=== PATIENT | male | born 1955 | race Caucasian/White ===

== ENCOUNTER 2021-02-24 11:36 | Inpatient (IN) | payer MEDICARE, OTHER, SELFPAY ==
[2021-02-24] VITALS (24 sets, daily range): BP systolic 116–144; BP diastolic 63–85; PULSE 61–115; RESP 12–20; TEMP 36.2–36.6; O2SAT 8–98; BMI 35.2
--- NOTE | ~2021-02-24 | US_ITS ---
EXAMINATION: US abdomen limited DATE: 02/24/2021 15:05 INDICATION: Abdominal pain TECHNIQUE: Multiple grayscale and Doppler ultrasound images of the abdomen were obtained. COMPARISON: None FINDINGS: The visualized portion of the pancreatic body is normal in appearance. The pancreatic head and tail are obscured. Liver has normal contour, with a smooth surface. There is increased parenchymal echogen icity and coarsened echotexture consistent with diffuse hepatic steatosis. No liver lesion identified however sensitivity is significantly limited by the poor acoustic penetration resulting from the hep atic steatosis. No intrahepatic biliary duct dilation suspected. Portal venous flow was seen in the hepatopetal, normal direction and has normal Doppler waveform. The gallbladder is normal in appearanc e. There is no cholelithiasis. The common bile duct measures 4 mm, which is normal. Sonographic Murp hy sign was reported as negative by the book editor.Right kidney measures 9.1 x 4.4 x 5.3 cm with nor mal echogenicity and no hydronephrosis. Visualized portion of the proximal inferior vena cava is norm al. IMPRESSION: 1. Diffuse hepatic steatosis. Reviewed, dictated and finalized at location A.
--- NOTE | ~2021-02-24 | CT_ITS ---
EXAMINATION: CT abdomen pelvis w con DATE: 02/24/2021 14:14 INDICATION: Abdominal pain. TECHNIQUE: Computed tomography (CT) of the abdomen and pelvis was performed with 100 mL Omnipaque 350 intravenous contrast. Automated exposure control and iterative reconstruction technique were employe d. The dose-length product was 1010.88 mGy-cm. COMPARISON: CT abdomen and pelvis 07/07/2012 FINDINGS: The visualized portions of the lung bases demonstrate calcified bilateral pulmonary nodules and calcified right hilar and mediastinal lymph nodes, consistent with old granulomatous disease. No pleural effusion. The heart size is normal. No pericardial effusion. There is diffuse hepatic steato sis. Calcifications in the spleen are consistent with old granulomatous disease. There is fat strandi ng around the head of the pancreas, consistent with pancreatitis. The gallbladder and spleen are norm al. There is cortical thinning of the kidneys. The prostate is mildly enlarged. There is diverticulos is of the colon without evidence of diverticulitis. The appendix is normal. There are no dilated loop s of bowel. There are no pathologically enlarged lymph nodes. There is no free intraperitoneal fluid. There is moderate lumbar spondylosis. IMPRESSION: 1. Acute interstitial pancreatitis. Reviewed, dictated and finalized at location B.
[2021-02-24 12:03] LABS: Hematocrit 47.6 % (42.0-52.0); Hemoglobin 16.4 g/dL (14.0-18.0); Mean Corpuscular HGB Conc 34.5 g/dl (32-36); Mean Corpuscular Hemoglobin 29.6 pg (26-34); Mean Corpuscular Volume 85.9 fl (80-100); Mean Platelet Volume 11.5 fl (7.4-10.4); Platelet Count Result 258 k/mm3 (150-375); Red Blood Count 5.54 M/mm3 (4.6-6.20); Red Cell Distribution Width 12.9 % (11.5-14.5)
[2021-02-24 12:14] LABS: Alanine Aminotransferase 24 U/L (4-50); Albumin Level 4.5 g/dL (3.5-5.1); Alkaline Phosphatase 74 U/L (38-126); Anion Gap 6 mmol/L (8-16); Aspartate Amino Transferase 28 U/L (17-59); Bilirubin,Total 1.1 mg/dL (0.2-1.3); Blood Urea Nitrogen 16 mg/dL (9-20); Calcium 10.7 mg/dL (8.4-10.2); Carbon Dioxide 37 mmol/L (22-30); Chloride 95 mmol/L (98-107); Estimated CRCL calculation 56 ml/min; Estimated Glomerular Filt Rate > 60; Glucose 174 mg/dL (75-110); Lipase 190 U/L (23-300); Potassium 3.2 mmol/L (3.4-5.0); Sodium 138 mmol/L (137-145)
[2021-02-24 12:20] LABS: Platelet Estimate Adequate (Adequate)
[2021-02-24 12:27] LABS: Add Urine Microscopic? YES; Appearance Urine Cloudy (Clear); Bilirubin Urine Negative (Negative); Blood Urine Negative (Negative); Color Urine Amber (Yellow); Glucose Urine UA Negative (Negative); Ketones Urine Negative (Negative); Leukocyte Esterase Ur Negative LEU/UL (Negative); Mucus Urine Rare /lpf; Nitrate Urine Negative (Negative); Protein Urine 1+ mg/dL (Negative); RBC Urine 0-2 /hpf (0-2); Specific Grav Ur 1.021 (1.001-1.035); Urobilinogen Urine Negative mg/dL (<2.0); WBC Urine 0-3 /hpf
--- NOTE | 2021-02-24 13:41 | ED.GENADULT ---
HPI - General Adult General Chief complaint: Abdominal Pain Stated complaint: abd pain Time Seen by Provider: 02/24/21 13:31 Source: patient History of Present Illness HPI narrative: Patient is a 65 y/o male complaining of epigastric abdominal pain starting 4-5 days ago. He describes his pain as dull and rates it as 5/10. He states that eating makes his pain worse. There is no pain radiation. He has some nausea, but no vomiting or diarrhea. Related Data Home Medications Medication Instructions Recorded Confirmed cetirizine 10 mg capsule 10 mg PO PRN cap 06/17/20 10/16/20 hydrochlorothiazide 25 mg tablet 25 mg PO DAILY 06/17/20 10/16/20 metoprolol tartrate 25 mg tablet 25 mg PO DAILY 06/17/20 10/16/20 alcohol swabs 1 pad TOPICAL DAILY each 10/16/20 10/16/20 Allergies Allergy/AdvReac Type Severity Reaction Status Date / Time codeine Allergy Mild ITCHEY Verified 02/24/21 14:26 FLUSH, N/V tramadol Allergy Unknown Verified 02/24/21 15:46 Review of Systems Constitutional: Constitutional: Denies chills, Denies fever(s), Denies headache(s) and Denies weakness Eyes: Eyes: Denies blurry vision ENT: Denies headache(s) and Denies neck pain Cardiovascular: Cardiovascular: Denies chest pain and Denies dyspnea Respiratory: Respiratory: Denies cough and Denies dyspnea Gastrointestinal: Gastrointestinal: Reports abdominal pain, Denies diarrhea, Reports nausea and Denies vomiting Genitourinary: Genitourinary: Denies hematuria and Denies dysuria Musculoskeletal: Musculoskeletal: Denies back pain and Denies neck pain Neurologic: Denies headache(s) and Denies weakness PMFSH Past Medical History Medical History Hypertension Type 2 diabetes mellitus with hyperglycemia Family History Family History Mother Hypertension Father Family history of chronic obstructive pulmonary disease Sibling Family history of chronic obstructive pulmonary disease Other Diabetes mellitus Family history of cardiovascular disease Family history of elevated blood lipids Family history of glaucoma Family history of hearing loss Family history of mental disorder Family history of obesity Family history of osteoporosis Social History Social History Smoking status: Never smoker Alcohol intake: never Gender identity (if verbalized by the patient): Male Exam Const: General: no acute distress and well developed Orientation/consciousness: oriented to person, oriented to place, oriented to time and patient oriented x3 HENMT: Head: normocephalic Ears: external ears normal General nose exam: Normal external nose present Eyes: General: appearance normal, both eyes and all related structures Conjunctivae: conjunctivae normal Neck: Neck: normal visual inspection and full ROM Chest: Chest palpation & inspection: normal inspection of the chest and no tenderness Resp: Effort & Inspection: normal respiratory effort Auscultation: clear to auscultation bilaterally Cardio: Rate: regular rate Rhythm: regular rhythm GI: GI Palp: Yes abdominal tenderness (right upper quadrant and epigastric) and Yes Soft to palpation Skin: General skin exam: normal color and turgor normal Neuro: General: oriented to person, oriented to place, oriented to time and patient oriented x3 Cognition (Neuro): normal cognition Extrem: General: normal to inspection, full ROM and no pedal edema Psych: Appearance: grossly normal Mental Status: mental status grossly normal Affect: normal affect Course Consultations Consultation #1: Discussed with LUCIA Hernadez, who agrees to admit. Date: 02/24/21 Time: 15:38 Vital Signs Vital signs: Vital Signs Temperature 36.6 C 02/24/21 11:50 Pulse Rate 64 02/24/21 11:50 Respiratory Rate 20 02/24/21 11:50 Blood Pressure 134/80 02/24/21 11:50
[2021-02-24] MEDS: POTASSIUM CHLORIDE 20 MEQ TABLET 40 MEQ PO (14:29)
[2021-02-24] MEDS: METOCLOPRAMIDE HCL INJ 10 MG/2 ML VIAL IV PUSH (14:29)
[2021-02-24] MEDS: SODIUM CHLORIDE 0.9% IV 1,000 ML 999 ML IV CONT (14:31)
[2021-02-24] MEDS: KETOROLAC 30 MG/ML VIAL (*BKC) IV PUSH (14:31)
--- NOTE | 2021-02-24 17:20 | PC.NURSE ---
This patient, Rajan Cassidy Jr., was admitted to 3 Med Surg Room 312-01. Patient/family oriented to hospital policies and general routines including ID bracelet, bed and alarms, visiting hours, pain management, procedures, bathroom and other care routines, personal items, smoking policy, room service/diet, and visiting hours.Report received from Ayan SHERWOOD. Information on how to activate the Rapid Response Team has been discussed. Patient/Family are encouraged to report perceived risks to care and to ask questions if they do not understand what they are told or what they should do.
[2021-02-24] MEDS: SODIUM CHLORIDE 0.9% IV 1,000 ML 125 ML IV CONT (18:23)
[2021-02-24 22:39] LABS: Glucose Point of Care 106 (65-105)
--- NOTE | 2021-02-25 00:07 | PM.IMHP ---
H&P: HPI History of Present Illness Date/Time: 02/24/21 9505 this is a 65-year-old male patient who is diabetic with hypertension. The patient stated that he is was started on a new medication Bydureon about 3 weeks ago. The patient stated that he did have some upset stomach and loss of appetite since he started on this. Though the last pain. Is been dull and he has been rating his pain 5/10. Eating makes his pain worse. The patient has never had any previous history of pancreatitis he had no nausea vomiting or diarrhea. No fever chills. Patient's lipase is normal already did have a CT of his abdomen as diffuse hepatic steatosis. His blood sugar was 174. Calcium 10.7. Urine was negative. Patient's potassium is 3.2 and it was supplemented., IV Toradol, Reglan IV, fentanyl and IV fluids in the emergency room. The patient is being admitted to inpatient service on the date of service of 02/24/2021. Chief Complaint: Abdominal pain Review of Systems Review of Systems: All systems reviewed & are unremarkable except as noted in HPI and below Constitutional: Constitutional: Reports as per HPI and Reports no additional constitutional complaints Eyes: Eyes: Reports as per HPI and Reports no additional eye complaints ENT: Reports system reviewed and no additional complaints, except as documented and Reports Normal hearing present Cardiovascular: Cardiovascular: Reports no additional cardiovascular complaints Respiratory: Respiratory: Reports no additional respiratory complaints and Reports no additional respiratory complaints Gastrointestinal: Gastrointestinal: Reports as per HPI and Reports no additional gastrointestinal complaints Musculoskeletal: Musculoskeletal: Reports no additional musculoskeletal complaints Integumentary/Breasts: Skin/Breast: Reports system reviewed and no additional complaints, except as docu and Reports as per HPI Neurologic: Reports system reviewed and no additional complaints, except as documented, Reports as per HPI and Reports Normal hearing present Psychiatric: Psychiatric: Reports no additional psychiatric complaints and Reports as per HPI Endocrine: Endocrine: Reports no additional endocrine complaints Hematologic/Lymphatic: Hematologic/Lymphatic: Reports no additional hematologic/lymphatic complaints Allergic/Immunologic: Allergic/Immunologic: Reports no additional allergic/immunologic complaints [facility] Past Medical History Medical History (Updated 02/25/21 @ 00:13 by Maricarmen Turner, LUCIA) Diverticulosis Hypertension Obstructive sleep apnea Intolerant of devices for sleep apnea. Type 2 diabetes mellitus with hyperglycemia Surgical History Surgical History (Updated 02/25/21 @ 00:13 by Maricarmen Turner NP) H/O bilateral cataract extraction H/O colonoscopy H/O hernia repair S/P tonsillectomy and adenoidectomy Family History Family History Mother Hypertension Diabetes mellitus Family history of hearing loss Family history of mental disorder Family history of obesity Father Family history of chronic obstructive pulmonary disease Family history of cardiovascular disease Family history of glaucoma Metastatic bone cancer Sibling Family history of chronic obstructive pulmonary disease Other Family history of elevated blood lipids Family history of osteoporosis Social History Social History (Updated 02/25/21 @ 00:14 by Maricarmen Turner NP) Social History: The patient lives with his who is the durable power consumer attorney for healthcare. He desires to be a full code. He has 3 children. He is retired from the he was in the [employer] in and then the majority of the time spent in the [place]. He works 6 years at [employer]. The patient denies any alcohol tobacco marijuana or illicit drugs. The patient lifelong nonsmoker. Smoking status: Never smoker Alcohol intake: never Substance use: kelsie
[2021-02-25 02:15] LABS: Glucose Point of Care 80 (65-105)
[2021-02-25] MEDS: SODIUM CHLORIDE 0.9% IV 1,000 ML 125 ML IV CONT ×2 (02:35→10:42)
[2021-02-25 06:00] VITALS: BP 131/62; PULSE 87; RESP 16; TEMP 36.2; O2SAT 96
[2021-02-25 06:01] LABS: Glucose Point of Care 87 (65-105)
[2021-02-25 06:23] LABS: Basophils Absolute Auto 0.1 K/mm3 (0.0-0.1); Basophils Percent Auto 0.5 % (0.2-1.2); Eosinophils Absolute Auto 0.3 K/mm3 (0-0.3); Hematocrit 39.7 % (42.0-52.0); Hemoglobin 13.5 g/dL (14.0-18.0); Immature Granulocyte Absolute 0.05 K/mm3 (0.00-0.031); Immature Granulocyte Percent A 0.4 % (0-0.5); Lymphocytes Absolute Auto 3.59 K/mm3 (0.9-3.2); Lymphocytes Percent Auto 27.8 % (18.3-44.2); Mean Corpuscular Hemoglobin 29.2 pg (26-34); Mean Corpuscular Volume 85.9 fl (80-100); Mean Platelet Volume 11.9 fl (7.4-10.4); Monocytes Percent Auto 7.6 % (2.6-8.5); Neutrophils Percent Auto 61.7 % (45.5-73.1); Platelet Count Result 201 k/mm3 (150-375); Red Blood Count 4.62 M/mm3 (4.6-6.20); White Blood Count 12.9 K/mm3 (4.5-10.0)
[2021-02-25 06:32] LABS: Alanine Aminotransferase 19 U/L (4-50); Albumin Level 3.4 g/dL (3.5-5.1); Alkaline Phosphatase 51 U/L (38-126); Anion Gap 6 mmol/L (8-16); Aspartate Amino Transferase 27 U/L (17-59); Bilirubin,Total 0.7 mg/dL (0.2-1.3); Blood Urea Nitrogen 20 mg/dL (9-20); Calcium 8.8 mg/dL (8.4-10.2); Carbon Dioxide 29 mmol/L (22-30); Chloride 105 mmol/L (98-107); Cholesterol 121 mg/dL (0-200); Estimated CRCL calculation 60 ml/min; Estimated Glomerular Filt Rate > 60; Glucose 91 mg/dL (75-110); HDL Direct 35 mg/dL; Hemoglobin A1C 7.7 % (<5.7); Lipase 168 U/L (23-300); Magnesium 1.4 mg/dL (1.6-2.3); Potassium 3.2 mmol/L (3.4-5.0); Sodium 140 mmol/L (137-145); Triglycerides 110 mg/dL (<150)
[2021-02-25 06:43] LABS: LDL Cholesterol Direct 71 mg/dL
[2021-02-25 09:02] VITALS: O2SAT 97
[2021-02-25] MEDS: MAGNESIUM SULF 2 GM/WATER 50ML 2 GM/50 ML BAG IVPB (10:44)
[2021-02-25 12:40] LABS: Glucose Point of Care 126 (65-105)
[2021-02-25 14:00] VITALS: BP 135/64; PULSE 83; RESP 18; TEMP 36.6; O2SAT 98
--- NOTE | 2021-02-25 15:42 | PM.IMPN ---
Progress Note: A&P Assessment and Plan (1) Acute pancreatitis: Qualifiers: Acute pancreatitis complication: unspecified Pancreatitis type: unspecified pancreatitis type Qualified Code(s): K85.90 - Acute pancreatitis without necrosis or infection, unspecified Code(s): K85.90 - Acute pancreatitis without necrosis or infection, unspecified Status: Acute Assessment and Plan: Pancreatitis noted on CT -lipase normal -pain resolved -advance diet as tolerated, stop IV fluids -U/S showing no gallstones or bile duct enlargement; Triglycerides normal. -no hx of alcohol abuse -Likely due to Bydureon that was started within the last month or so. Will stop this at d/c. could also be due to HCTZ but pt states he has taken this for awhile without issue. (2) Type 2 diabetes mellitus with hyperglycemia: Code(s): E11.65 - Type 2 diabetes mellitus with hyperglycemia Status: Chronic Assessment and Plan: Last glucose 126 -Continue SSI -A1c 7.7 -He takes lantus 16uHS with 14u in the AM at home and metformin (3) Hypertension: Code(s): I10 - Essential (primary) hypertension Status: Chronic Assessment and Plan: last bp 135/64 -Continue metoprolol hctz tomorrow AM Time Spent With Patient Time with patient: 25 - 35 minutes Subjective Date/time seen: 02/25/21 15:42 Interval history: Pt is a 65 y/o here for pancreatitis. Pt was seen today and is feeling much better. He has not had any further pain and did well with clear liquids. Pt denies nausea, vomiting, fevers, chills, constipation, diarrhea, chest pain, or SOB. Review of Systems Review of Systems: All systems reviewed & are unremarkable except as noted in HPI and below Exam Narrative: Exam Narrative: General: Well developed well nourished patient in NAD HEENT: normocephalic Neck: supple Neuro: Alert and oriented x4 CV:RRR Resp:CTA Abd: Soft, non distended. No pain to palpation. Positive bowel sounds Extremities: No swelling, erythema, or pain to palpation. Objective Data Vital Signs Vital Signs: Vital Signs - 24 hr 02/24/21 15:45 02/24/21 15:47 02/24/21 16:20 Temperature Pulse Rate 61 64 74 Respiratory Rate 13 12 16 Blood Pressure 116/71 Pulse Oximetry 97 96 97 02/24/21 16:30 02/24/21 16:32 02/24/21 16:33 Temperature Pulse Rate 67 76 77 Respiratory Rate 14 16 19 Blood Pressure 118/64 Pulse Oximetry 96 94 96 02/24/21 16:49 02/24/21 17:00 02/24/21 17:02 Temperature Pulse Rate 91 75 73 Respiratory Rate 15 20 17 Blood Pressure 121/63 Pulse Oximetry 92 92 94 02/24/21 17:27 02/24/21 20:00 02/24/21 22:00 Temperature 97.2 F L 97.2 F L Pulse Rate 77 115 H Respiratory Rate 18 16 Blood Pressure 140/83 124/70 Pulse Oximetry 98 92 98 02/25/21 06:00 02/25/21 09:02 02/25/21 14:00 Temperature 97.2 F L 97.8 F Pulse Rate 87 83 Respiratory Rate 16 18 Blood Pressure 131/62 135/64 Pulse Oximetry 96 97 98 Intake/Output Intake/Output: Intake & Output 02/22/21 02/23/21 02/24/21 02/25/21 23:59 23:59 23:59 23:59 Intake Total 1000 2000 Output Total 250 Balance 1000 1750 Meds/Results Medications: Active Medications Generic Name Dose Route Start Last Admin Trade Name Freq PRN Reason Stop Dose Admin Dextrose 12.5 gm 02/25/21 00:04 Dextrose 50% 25 Gm/50 Ml Syringe IV PUSH PRN PRN Hypoglycemia Protocol Fentanyl Citrate 50 mcg 02/24/21 15:39 Fentanyl Citrate Inj (*Crx) 100 Mcg/2 Ml Vial IV PUSH Q3H PRN Pain Rated 7-10 Glucagon 1 mg 02/25/21 00:04 Glucagon For Inj 1 Mg Vial IM PRN PRN Hypoglycemia Protocol Glucose 15 gm 02/25/21 00:04 Glucose Oral Gel 15 Gm Of Glucse In 37.5 Gm Tube PO PRN PRN Hypoglycemia Protocol Hydralazine HCl 10 mg 02/25/21 00:05 Hydralazine Hcl 20 Mg/Ml Vial IV PUSH Q8H PRN Blood Pressure - High Sodium Chlor
[2021-02-25 17:27] VITALS: PULSE 60
[2021-02-25] MEDS: METOPROLOL TARTRATE 50 MG TAB PO (17:27)
[2021-02-25 17:56] LABS: Glucose Point of Care 188 (65-105)
[2021-02-25 21:18] LABS: Glucose Point of Care 209 (65-105)
[2021-02-25 21:20] VITALS: BP 136/69; PULSE 78; RESP 16; TEMP 36.5; O2SAT 99
[2021-02-26 05:58] VITALS: BP 125/72; PULSE 71; RESP 16; TEMP 36.2; O2SAT 97
[2021-02-26 06:57] LABS: Anion Gap 2 mmol/L (8-16); Blood Urea Nitrogen 15 mg/dL (9-20); Calcium 8.5 mg/dL (8.4-10.2); Carbon Dioxide 34 mmol/L (22-30); Chloride 105 mmol/L (98-107); Estimated CRCL calculation 66 ml/min; Estimated Glomerular Filt Rate > 60; Glucose 126 mg/dL (75-110); Magnesium 1.8 mg/dL (1.6-2.3); Sodium 141 mmol/L (137-145)
[2021-02-26 07:50] LABS: Glucose Point of Care 162 (65-105)
[2021-02-26 08:21] VITALS: PULSE 64
[2021-02-26] MEDS: METOPROLOL TARTRATE 50 MG TAB PO (08:21)
[2021-02-26] MEDS: hydroCHLOROthiazide 25 MG TABLET PO (08:21)
--- NOTE | 2021-02-26 09:18 | PM.DS ---
DS: Admitting Diagnosis Admitting Diagnosis Admitting Diagnosis: pancreatitis DS: Discharge Diagnosis Discharge Diagnosis (1) Acute pancreatitis: Qualifiers: Acute pancreatitis complication: unspecified Pancreatitis type: unspecified pancreatitis type Qualified Code(s): K85.90 - Acute pancreatitis without necrosis or infection, unspecified Code(s): K85.90 - Acute pancreatitis without necrosis or infection, unspecified Status: Acute Assessment and Plan: Pancreatitis noted on CT -lipase normal, pain resolved -tolerating low fat diet at discharge -U/S showing no gallstones or bile duct enlargement; Triglycerides normal. -no hx of alcohol abuse -Likely due to Bydureon that was started within the last month or so. Will stop this at d/c. could also be due to HCTZ but pt states he has taken this for awhile without issue. If pancreatitis reoccurs, may need to stop HCTZ. Pt notified of this. (2) Type 2 diabetes mellitus with hyperglycemia: Code(s): E11.65 - Type 2 diabetes mellitus with hyperglycemia Status: Chronic Assessment and Plan: Last glucose 162 -Continue home regimen without the Byrureon -A1c 7.7 -He takes lantus 16uHS with 14u in the AM at home as well as metformin -informed on hypoglycemia protocol -plans to follow-up with Dr. Dior discharge (3) Hypertension: Code(s): I10 - Essential (primary) hypertension Status: Chronic Assessment and Plan: last bp 125/72 -Continue metoprolol and hctz DS: Summary Hospital Course Hospital Course: A 65-year-old male who has history of hypertension and diabetes who presented emergency room for epigastric pain starting 5 days prior. Vitals in the ER were stable. Initial white blood cell count 18.0, hemoglobin 16.4, hematocrit 47.6, platelets 258. BMP showed hypokalemia at 3.2. Lipase normal. UA negative for infection. Abdominal CT showed acute interstitial pancreatitis as well as diverticulosis without evidence of diverticulitis. Patient was admitted to the hospitalist service and started on IV fluids and bowel rest. The patient improved greatly with conservative measures. His white blood cell count trended down was likely a reaction to the acute illness and not indication of infection. The patient's was advanced as tolerated and the day of discharge he was eating a low-fat diet without any abdominal pain. He underwent an ultrasound of the right upper quadrant of gallbladder stones, common bile duct stones or any evidence of common bile duct dilation. The patient does not drink alcohol and triglycerides were normal. He started taking Bydureon recently and stated that he has been having trouble eating and abdominal pain since. This medication is known to cause pancreatitis and was stopped. He also takes hydrochlorothiazide that he has been taking for many years which also could be a component but it is likely the Bydureon. If the patient has another recurrence of pancreatitis, hydrochlorothiazide should be stopped. The day of discharge the patient was doing well and ready to go home. He was educated about the worrisome signs and symptoms come back to emergency room for was discharged stable condition. He is going to follow-up with his primary care physician about this stay. Status at Discharge Functional status at discharge: independent ambulation Time Spent with Patient Time attestation: Total time spent providing and/or coordinating discharge services:34 min Time spent: Greater than 30 minutes Exam Narrative: Exam Narrative: General: Well developed well nourished patient in NAD HEENT: normocephalic Neck: supple Neuro: Alert and oriented x4 CV:RRR Resp:CTA Abd: Soft, non distended. No pain to palpation. Positive bowel sounds Extremities: No swelling, erythema, or pain to palpation. DS: Data Data Completed and Pending Labs on day of discharge: Labs from last 24 hours 02/26/21 02/26/2102/15
[2021-02-26 11:10] VITALS: O2SAT 98
== END 2021-02-26 10:40 | disposition home or self-care (01) | DRG 440 ==
LOC: ANHED 13:54 → ANH3MEDSUR 16:17
PROVIDERS: Emergency Medicine; Nurse Practitioner; Admitting Provider Hospitalist; Emergency Provider Emergency Medicine; PCP Internal Medicine; Visit Provider Physician Assistant
DX: K85.30 Drug induced acute pancreatitis without necrosis or infection (principal); T38.3X5A Adverse effect of insulin and oral hypoglycemic [antidiabetic] drugs, initial encounter; E11.65 Type 2 diabetes mellitus with hyperglycemia; I10 Essential (primary) hypertension; G47.33 Obstructive sleep apnea (adult) (pediatric); K57.90 Diverticulosis of intestine, part unspecified, without perforation or abscess without bleeding; Z98.42 Cataract extraction status, left eye; Z98.41 Cataract extraction status, right eye
CPT/HCPCS: 36415; 74177; 76705; 80048; 80053; 80061; 81001; 82948; 83036; 83690; 83735; 85025; 96361; 96374; 96375; 99285; A9270; J1885; J2765; J3475; J3480; J7030; Q9967

== ENCOUNTER → 2021-05-13 15:33 | Outpatient (CLI) | payer MEDICARE, OTHER, SELFPAY ==
--- NOTE | ~2021-05-13 | XR_ITS ---
XR cervical spine 4-5V 05/13/2021 16:07 Indication: Neck pain Procedure: 5 views of the cervical spine Comparison: 07/09/2005 Findings: There is disc narrowing at C4-5. There is moderate multilevel uncinate and facet hypertroph y, most advanced at C4-5 and C5-6. There is mild carotid atherosclerosis. Odontoid process within nor mal limits. No prevertebral soft tissue swelling. No fracture or traumatic malalignment. Impression: 1: Moderate cervical spondylosis. Reviewed, dictated and finalized at location A. Impression: 1: Moderate cervical spondylosis.
== END ==
PROVIDERS: PCP Internal Medicine; Visit Provider Internal Medicine
DX: M47.892 Other spondylosis, cervical region (principal)
CPT/HCPCS: 72050

== ENCOUNTER 2021-07-09 14:30 | Outpatient (RCR) | payer MEDICARE, OTHER, SELFPAY ==
[2021-06-03 11:14] VITALS: BMI 35.6
[2021-06-03 11:15] VITALS: BMI 35.6
== END 2021-08-18 11:37 | disposition home or self-care (01) ==
LOC: ANHDMC 14:30
PROVIDERS: PCP Internal Medicine; Visit Provider Nurse Practitioner Family
DX: E11.65 Type 2 diabetes mellitus with hyperglycemia (principal); Z71.3 Dietary counseling and surveillance; Z71.89 Other specified counseling
CPT/HCPCS: 97802; G0108; G0109

== ENCOUNTER → 2021-09-01 09:41 | Outpatient (REF) | payer MEDICARE, OTHER, SELFPAY | LOC: ANHLAB 09:41 | PROVIDERS: PCP Internal Medicine; Visit Provider Nurse Practitioner | DX: C44.311 Basal cell carcinoma of skin of nose (principal) | CPT/HCPCS: 88305; 88331 ==

== ENCOUNTER 2025-05-29 13:00 | Outpatient (RCR) | payer MEDICARE, OTHER, SELFPAY | END 2025-06-25 12:23 | disposition home or self-care (01) | LOC: ANHDMC 13:00 | PROVIDERS: PCP Internal Medicine Gastroenterology; Visit Provider Internal Medicine Endocrinology, Diabetes & Metabolism | DX: E11.65 Type 2 diabetes mellitus with hyperglycemia (principal); Z71.3 Dietary counseling and surveillance | CPT/HCPCS: G0108 ==